=== PATIENT | female | born 1985 | race African-American/Black ===

== ENCOUNTER → 2024-07-25 10:48 | Outpatient (BNV) | payer OTHER, SELFPAY | PROVIDERS: PCP Internal Medicine; Visit Provider Radiology Diagnostic Radiology | DX: D25.1 Intramural leiomyoma of uterus (principal) | CPT/HCPCS: 72197 ==

== ENCOUNTER 2024-07-25 11:22 | Outpatient (REF) | payer OTHER, SELFPAY ==
--- NOTE | ~2024-07-25 | MR_ITS ---
EXAMINATION: MR PELVIS WITHOUT AND WITH CONTRAST CLINICAL INFORMATION: Subcutaneous mass deep endometriosis. COMPARISON: None available. TECHNIQUE: Multiplanar, multisequence MRI pelvis without and with IV contrast. Total of 10 cc gadolinium based (Gadavist) given without reported immediate complications. FINDINGS: The uterus is in retroversion flexion position and measures 5 x 6 x 9 cm. Junctional zone measures 5 mm. There is a 2.5 cm nonenhancing hypointense T1 and intrinsic isointense T1 with hypointense signal in all sequences centered within the uterine fibroid of the left lateral body of the uterus. Right ovary measures 4 x 2 x 3 cm scattered follicles. There is a 1.8 cm dominant follicle. No enhancing mass. The left ovary measures 2 x 4 x 3 cm with scattered follicles. No enhancing mass. The cervix measures 3 cm in maximal length without enhancing lesion. There is a 2 x 1.6 x 1.2 cm heterogeneous spiculated lesion beneath the skin in the left midline lower abdominal wall fat planes adjacent to the abdominal rectus muscles.. Trace amount of free fluid in the cul-de-sac. No gross lymphadenopathy. The bone marrow signal demonstrated no enhancing mass or series signal abnormality. MR/MR pelvis wo/w con IMPRESSION: 2 x 1.6 x 1.2 cm spiculated enhancing lesion/mass beneath the skin and fat planes of the left midline lower abdominal wall adjacent to the abdominal rectus muscle. 2.5 cm calcified uterine fibroid. No masses or enhancing lesion in either ovary. Electronically signed by: Jose Elias Porter MD 07/25/2024 01:09 PM EDT
[2024-07-25] MEDS: gadobutroL 7.5 ML VIAL IVPUSH (12:49)
--- OUTSIDE RECORDS SUMMARY | 2024-07-25 12:55 | XMS_ITS | Continuity of Care Document ---
Author Organization [facility] [address] [place] [address] Phone [phone] Care Team Providers Care Family Day Care Provider Name Role Phone Sanju Potter M.D. Care Team Information Receiv er [phone] Problems Active Problems Provider Date Chronic type B viral hepatitis Jose Guadalupe Ragland M.D. Onset: 02/08/2022 Female infertility Jose Guadalupe Ragland M.D. Onset: 02/08/2022 Polycystic ovary syndrome Jose Guadalupe Ragland M.D. Onset: 02/08/2022 Type 2 diabetes mellitus Jose Guadalupe Ragland M.D. O nset: 02/08/2022 Social History Type Date Description Comments Sex Female Sex Unknown Lives With Spouse Lives With Sons ETOH Use Occasionally consumes wine Tobacco Use Start: Unknown Patient has never smoked Allergies and adverse reactions Description No Known Drug Allergies Medications Active Medications SIG Qnty Indications Ordering Provider Date Onetouch VerioStrips use 1 strip to check glucose 2 times daily dx: e11.9 225units Ana Lilia Heard M.D. 03/19/2024 Onetouch Delica Plus Lancets Fine 30GPlus 30G Misc use 1 to skin 2 time daily for 90 days dx: e11.9 300units Ana Lilia Heard M.D. 03/19/2024 Onetouch Verio Flex Blood Glucose Monitoring Systemw/Device Kit use to check sugar twice a day joshua Heard M.D. 03/14/2024 Metformin [id number] Tablets Take 1 Tablet By Mouth Twice A Day 180tabs Ana Lilia Heard M.D. 01/18/2023 Trulicity0.75mg/0.5M L Solution Auto-Inject inject 1 pen once a week 2ml E11.9 Ana Lilia Heard M.D. 01/18/2023 E28.2 Freestyle Ruben 2/Sensor/Flash Glucose Monitoring [id number] Misc change sensor every 14 days 6ungeorgi Jose Guadalupe Ragland M.D. Syeda3-0.03mg Tablets Barb Barbour M.D. History Medications Blood Glucose Test Strips 334703 Strips use 1 strip to check glucose 2 times daily dx: e11.9 225ungeorgi Ana Lilia alvarez M.D. 03/19/2024 - 03/19/2024 Vital Signs Date Vital Result Comment 06/12/2024 10:34am BP Systolic 110 mmHg BP Diastolic 80 mmHg Heart Rate 83 /min Height 63.5 inches 5'3.50 Weight 132.38 lb BMI (Body Mass Index) 23.1 kg/m2 Results Test Acquired Date Facility Test Result H/L Range Note Hemoglobin A1c 06/12/2024 [facility]house Hemoglobin A1c 6.0% Glucose Fingerstick 06/12/2024 Inhouse Glucose Fingerstick 106 Glucose Fingerstick 03/14/2024 [facility]house Glucose Fingerstick 317 Hemoglobin A1c 03/14/2024 [facility]house Hemoglobin A1c 8.4% Glucose Fingerstick 09/08/2023 Inhouse Glucose Fingerstick 182 Hemoglobin A1c 08/24/2023 [facility] Hemoglobin A1c 6.9 % High 4.8-5.6 1 Albumin/Creatini ne Ratio, Random Urine 08/24/2023 [facility] Creatinine, Urine 366.6 mg/dL Not Estab. Albumin, Urine 28.7 ug/mL Not Estab. Alb/Creat Ratio 8 mg/gcreat 0-29 2 Glucose Fingerstick 05/05/2023 Inhouse Glucose Fingerstick 132 Hemoglobin A1c 05/05/2023 [facility]house Hemoglobin A1c 5.6% Glucose Fingerstick 02/02/2023 [facility]house Glucose Fingerstick 89 Glucose Fingerstick 01/18/2023 [facility]house Glucose Fingerstick 327 Hemoglobin A1c 01/18/2023 [facility]house Hemoglobin A1c 8.7% Glucose Fingerstick 06/08/2022 Inhouse Glucose Fingerstick 157 Hemoglobin A1c 06/08/2022 Inhouse Hemoglobin A1c 6.7% Lipid Panel 03/15/2022 [facility] Cholesterol, Total 135 mg/dL (<200) Triglyceride 119 mg/dL (<150) HDL Chol 58 mg/dL (>39) LDL Cholesterol , Calculated 53 mg/dL (0-130) Non HDL Cholesterol (Calc) 77 mg/dL (<160) TSH With Reflex To FT4 03/15/2022 [facility] TSH With Reflex To FT4 1.78 uIU/mL (0.4-4.2 ) Urinary Microalbumin 03/15/2022 [facility] Micro-Albumin <12.0 mg/L (<20) 3 Malb/Creat Ratio Unable t o calcul <SEE NOTE> MG/GM (0-20) 4 Urine Creat For Micro Albumin 177.4 mg/dL Glucose Fingerstick 02/08/2022 Inhouse Glucose Fingerstick 125 Hemoglobin A1c 02/08/2022 Inhouse Hemoglobin A1c 5.6% 1 Prediabetes: 5.7 - 6 .4 Diabetes: >6.4 Glycemic control for adults with diabetes: <7.0 2 Normal: 0 - 29 Moderately increased: 30 - 300 Severely increased: >300 3 The urine microalbum in test is designed to monitor renal function. When screening for Bence Cabrera proteinuria, urine electrophoresis is recommended. 4 Unable to calculate Medical Devices Description No Information Available Encounters Type Date Location Provider Dx Diagnosis Office Visit 06/12/2024 10:15a Main Office YANELIS Castellon E11.9 Type 2 diabet es mellitus without complications Assessments Date Code Description Provider 06/12/2024 E11.9 Type 2 diabetes mellitus wit hout complications YANELIS Castellon Plan of Treatment Future Appointment(s):* 12/13/2024 10:15 am - Chasity Albright CNP at Main Office 06/12/2024 - YANELIS Castellon* E11.9 Type 2 diabetes mellitus without complications Functional Status Description No Information Available Mental Status Description No Information Available Referrals Description No Information Available
== END 2024-07-25 11:23 | disposition home or self-care (01) ==
LOC: HO.MRI 11:22
PROVIDERS: PCP Internal Medicine; Visit Provider Student in an Organized Health Care Education/Training Program
DX: R22.2 Localized swelling, mass and lump, trunk (principal); N80.129 Deep endometriosis of ovary, unspecified ovary
CPT/HCPCS: 72197; A9585